=== PATIENT | female | born 1970 | race African-American/Black ===

== ENCOUNTER 2019-01-30 17:39 | Emergency (ER) | payer OTHER ==
[~2019-01-30] VITALS: Ht 175.3 cm; Wt 128.2 kg
[2019-01-30 17:41] VITALS: Ht 175.3 cm; Wt 128.2 kg
[2019-01-30] MEDS ORDERED: TENORMIN50 MG PO (17:43)
[2019-01-30] MEDS ORDERED: HYDROCHLOROTHIA50 MG PO (17:43)
[2019-01-30] MEDS ORDERED: LYRICA200 MG PO (17:44)
[2019-01-30 18:23] LABS: BASOPHILS 0.3 % (0-2); EOSINOPHILS 2.2 % (0-7); HEMATOCRIT 38.6 % (36.0-48.0); HEMOGLOBIN 12.4 g/dL (12-16); IMMATURE GRANULOCYTES 0.3 % (0-5); LYMPHOCYTES 31.7 % (15-50); MCH 27.1 pg (26.0-34.0); MCHC 32.1 g/dL (31.0-37.0); MCV 84.5 fL (80.0-100.0); MEAN PLATELET VOLUME 10.1 fL (7.4-10.4); MONOCYTES 5.5 % (2-11); PLATELET COUNT 243 10x3/uL (130-400); RBC 4.57 10x6/uL (4.00-5.40); WBC 11.5 10x3/uL (4.8-10.8)
[2019-01-30 18:37] LABS: CALC OSMOLALITY 274 mosm/kg (275-300); CALCIUM 8.9 mg/dL (8.5-10.1); CARBON DIOXIDE 29.1 mmol/L (21.0-32.0); CHLORIDE - SERUM 103 mmol/L (98-107); CREATININE - SERUM 0.9 mg/dL (0.6-1.3); POTASSIUM - SERUM 3.5 mmol/L (3.5-5.1); SODIUM 140 mmol/L (136-145); UREA NITROGEN 8 mg/dL (7-18); eGFR NON AFRICAN AMERICAN 71 mL/min (90-120)
[2019-01-30 18:41] LABS: GLUCOSE 62 mg/dL (74-106)
[2019-01-30 18:54] LABS: ALKALINE PHOSPHATASE 60 U/L (46-116); ALT (SGPT) 26 U/L (10-68); BILIRUBIN - TOTAL 0.74 mg/dL (0.2-1.3); CKMB 0.4 U/L (0.0-3.6); CREATINE KINASE 138 UL (21-215); PROTEIN - SERUM 7.7 g/dL (6.4-8.2)
[2019-01-30 18:55] LABS: TROPONIN-I < 0.017 ng/mL (0.000-0.060)
[2019-01-30] MEDS ORDERED: TORADOL10 MG PO (21:54)
[2019-01-30 22:16] VITALS: BP 141/85
== END 2019-01-30 22:17 | disposition home or self-care (01) ==
LOC: D.ER 17:39
PROVIDERS: Family Medicine
DX: R07.9 Chest pain, unspecified (principal); I10 Essential (primary) hypertension